=== PATIENT | female | born 1930 | race Caucasian/White ===

== ENCOUNTER → 2018-08-23 | Day surgery (SDC) | payer MEDICARE ==
[2018-08-21 17:20] LABS: BASOPHILS % 0.4 % (0.0-1.0); EOSINOPHILS # (AUTO) 0.1 (0.0-0.4); EOSINOPHILS % 1.3 % (0.0-6.0); HEMATOCRIT 39.3 % (34.2-44.1); HEMOGLOBIN 13.1 g/dL (12.0-16.0); LYMPHOCYTES # (AUTO) 1.7 (1.0-3.2); LYMPHOCYTES % 30.1 % (18.0-39.1); MEAN CORPUSCULAR HEMOGLOBIN 31.2 pg (28-32); MEAN CORPUSCULAR HGB CONC 33.3 g/dL (31-35); MEAN CORPUSCULAR VOLUME 93.6 fL (81-99); MONOCYTES # (AUTO) 0.6 (0.2-0.8); MONOCYTES % 10.4 % (4.4-11.3); NEUTROPHILS # (AUTO) 3.2 (2.1-6.9); NEUTROPHILS % 57.6 % (38.7-80.0); PLATELET COUNT 129 x10e3/uL (140-360); RED CELL DISTRIBUTION WIDTH 14.4 % (11.7-14.4)
[~2018-08-23] MED LIST: BIOTIN2500 MCG PO; LEVOTHYROXINE112 MCG PO; METHOTREXATE2.5 MG PO; METOPROLOL SUCC25 MG PO; MULTI-VITAMIN1 EACH PO; OMEPRAZOLE40 MG PO; PROPOFOL IV EMULSION 10 MG/ML 50 ML VIAL ONE; RESTASIS1 EACH OP
--- OUTSIDE RECORDS SUMMARY | 2018-08-23 07:54 | XMS REPORT ---
Author Author [facility] Address Unknown Phone Unavailable Care Team Providers Care Clinical Coder Name Role Phone Unavailable Unavailable Payers Payer Name Policy Type Policy Number Effective Date Expiration Date Problems This patient has no known problems. Allergies, Adverse Reactions, Alerts Allergy Name Allergy Type Status Severity Reaction(s) Onset Date Inactive Date Treating Clinician Comments Sulfa (Sulfonamide Antibiotics) DA Active U 2016-04-18 00:00:00 doxycycline DA Active [place] 2016-04-18 00:00:00 Medications This patient has no known medications.
--- OUTSIDE RECORDS SUMMARY | 2018-08-23 07:54 | XMS REPORT | Continuity of Care Document ---
Author Author [facility] Interface Address Unknown Phone Unavailable Problems Problem Status Onset Date Classification Date Reported Comments Source WEAKNESS Active 11/21/2012 [facility] COPD - Chronic obstructive pulmonary disease Resolved Problem 11/23/2012 [facility] Heart murmur Resolved Problem 11/23/2012 [facility] Medications Medication Details Route Status Patient Instructions Ordering Provider Order Date Source Allergies, Adverse Reactions, Alerts Substance Category Reaction Severity Reaction type Status Date Reported Comments Source Immunizations Immunization Date Given Site Status Last Updated Comments Source Results Order Name Results Value Reference Range Date Interpretation Comments Source CHEMISTRY Phosphorus 3.5 mg/dL 2.5 - 4.5 11/21/2012 Normal [facility] CHEMISTRY Magnesium Lvl 2.1 mg/dL 1.8 - 2.4 11/21/2012 Normal [facility] CHEMISTRY eGFR 68 mL/min/1.73m2 11/21/2012 NA 1Result Comment: The eGFR is calculated using the CKD-EPI formula. In most young, healthy individuals the eGFR will be >90 mL/min/1.73m2. The eGFR declines with age. An eGFR of 60-89 may be normal in some populations, particularly the elderly, for whom the CKD-EPI formula has not been extensively validated. Use of the eGFR is not recommended in the following populations: Individuals with unstable creatinine concentrations, including patients and those with serious co-morbid conditions. Patients with extremes in muscle mass or diet. The data above are obtained from the National Kidney Disease Education Program (NKDEP) which additionally recommends that when the eGFR is used in patients with extremes of body mass index for purposes of drug dosing, the eGFR should be multiplied by the estimated BMI. [facility] CHEMISTRY BUN 21 mg/dL 7 - 22 11/21/2012 Normal [facility] CHEMISTRY Creatinine Lvl 0.8 mg/dL 0.5 - 1.4 11/21/2012 Normal [facility] CHEMISTRY Glucose Lvl 93 mg/dL 70 - 99 11/21/2012 Normal 2Interpretive Data: Adult reference range values reflect the clinical guidelines of the [place] [employer]. [facility] CHEMISTRY Calcium Lvl 9.0 mg/dL 8.5 - 10.5 11/21/2012 Normal [facility] CHEMISTRY CO2 31 meq/L 24 - 32 11/21/2012 Normal [facility] CHEMISTRY Chloride Lvl 103 meq/L 95 - 109 11/21/2012 Normal [facility] CHEMISTRY Potassium Lvl 4.3 meq/L 3.5 - 5.1 11/21/2012 Normal [facility] CHEMISTRY Sodium Lvl 142 meq/L 135 - 145 11/21/2012 Normal [facility] CHEMISTRY Albumin Lvl 3.8 g/dL 3.5 - 5.0 11/21/2012 Normal [facility] CHEMISTRY Total Protein 7.1 g/dL 6.4 - 8.4 11/21/2012 Normal [facility] CHEMISTRY AST 33 unit/L 0 - 37 11/21/2012 Normal [facility] CHEMISTRY Bili Total 0.2 mg/dL 0.2 - 1.3 11/21/2012 Normal [facility] CHEMISTRY Alk Phos 102 unit/L 39 - 136 11/21/2012 Normal [facility] CHEMISTRY ALT 28 unit/L 0 - 65 11/21/2012 Normal [facility] CHEMISTRY B/C Ratio 26 6 - 25 11/21/2012 HI [facility] CHEMISTRY AGAP 12.3 meq/L 10.0 - 20.0 11/21/2012 Normal [facility] CHEMISTRY Globulin 3.3 g/dL 2.0 - 4.0 11/21/2012 Normal [facility] CHEMISTRY A/G Ratio 1.2 0.7 - 1.6 11/21/2012 Normal [facility] HEMATOLOGY MPV 9.0 fL 7.4 - 10.4 11/21/2012 Normal [facility] HEMATOLOGY Platelet 183 K/CMM 133 - 450 11/21/2012 Normal [facility] HEMATOLOGY MCV 88.2 fL 81.0 - 99.0 11/21/2012 Normal [facility] HEMATOLOGY MCHC 33.5 g/dL 32.0 - 36.0 11/21/2012 Normal [facility] HEMATOLOGY MCH 29.5 pg 27.0 - 31.0 11/21/2012 Normal [facility] HEMATOLOGY RDW 12.4 % 11.5 - 14.5 11/21/2012 Normal [facility] HEMATOLOGY Hct 41.4 % 36.0 - 48.0 11/21/2012 Normal [facility] HEMATOLOGY Hgb 13.8 g/dL 12.0 - 16.0 11/21/2012 Normal [facility] HEMATOLOGY RBC 4.69 M/CMM 4.20 - 5.40 11/21/2012 Normal [facility] HEMATOLOGY WBC 6.3 K/CMM 3.7 - 10.4 11/21/2012 Normal [facility] HEMATOLOGY Eosinophils # 0.1 K/CMM 0.0 - 0.5 11/21/2012 Normal [facility] HEMATOLOGY Lymphocytes # 1.3 K/CMM 1.0 - 5.5 11/21/2012 Normal [facility] HEMATOLOGY Monocytes # 0.5 K/CMM 0.0 - 0.8 11/21/2012 [facility] HEMATOLOGY Basophils 0.7 % 0.0 - 1.0 11/21/2012 Normal [facility] HEMATOLOGY Segs-Bands # 4.4 K/CMM 1.5 - 8.1 11/21/2012 Normal [facility] HEMATOLOGY Eosinophils 1.1 % 0.0 - 4.0 11/21/2012 Normal [facility] HEMATOLOGY Monocytes 7.4 % 2.0 - 12.0 11/21/2012 Normal [facility] HEMATOLOGY Lymphocytes 21.4 % 20.0 - 40.0 11/21/2012 [facility] HEMATOLOGY Segs 69.4 % 45.0 - 75.0 11/21/2012 Normal [facility] HEMATOLOGY Basophils # 0.0 K/CMM 0.0 - 0.2 11/21/2012 Normal [facility] CHEMISTRY T4 Free 1.01 ng/dL 0.76 - 1.46 11/21/2012 Normal [facility] CHEMISTRY TSH 27.900 uIU/mL 0.360 - 3.740 11/21/2012 HI [facility] Vital Signs Vital Sign Value Date Comments Source Weight 55 11/21/2012 [facility] Height 167.64 cm 11/21/2012 [facility] Encounters Location Location Details Encounter Type Encounter Number Reason For Visit Attending Provider ADM Date DC Date Status Source [facility] Emergency [id number] CYNTHIA PIZARRO 11/21/2012 11/21/2012 Active [facility] Procedures Procedure Code Date Perfomer Comments Source
--- OUTSIDE RECORDS SUMMARY | 2018-08-23 07:54 | XMS REPORT | CCD ---
Author Author Auto Generated Organization [facility] Address Unknown Phone Unavailable Care Team Providers Care Fairing Man Name Role Phone Karl Goodson CP Allergies, Adverse Reactions, Alerts Substance Reaction Status NKDA Active Problem List Condition Effective Dates Status COPD - Chronic obstructive pulmonary disease Resolved Heart murmur Resolved Vital Signs Most recent to oldest [Reference Range]: 1 Height 167.64 cm (11/21/2012 07:53:00) Weight 55 kg (11/21/2012 07:53:00) Results CHEMISTRY Most recent to oldest [Reference Range]: 1 Sodium Lvl [135-145 mEq/L] 142 mEq/L (11/21/2012 09:10:00) Potassium Lvl [3.5-5.1 mEq/L] 4.3 mEq/L (11/21/2012 09:10:00) Chloride Lvl [95-109 mEq/L] 103 mEq/L (11/21/2012 09:10:00) CO2 [24-32 mEq/L] 31 mEq/L (11/21/2012 09:10:00) AGAP [10.0-20.0 mEq/L] 12.3 mEq/L (11/21/2012 09:10:00) Creatinine Lvl [0.5-1.4 mg/dL] 0.8 mg/dL (11/21/2012 09:10:00) eGFR 68 mL/min/1.73m2 1 *NA* (11/21/2012 09:10:00) BUN [7-22 mg/dL] 21 mg/dL (11/21/2012 09:10:00) B/C Ratio [6-25] 26 *HI* (11/21/2012 09:10:00) Glucose Lvl [70-99 mg/dL] 93 mg/dL 2 (11/21/2012 09:10:00) Total Protein [6.4-8.4 g/dL] 7.1 g/dL (11/21/2012:10:00) Albumin Lvl [3.5-5.0 g/dL] 3.8 g/dL (11/21/2012:10:00) Globulin [2.0-4.0 g/dL] 3.3 g/dL (11/21/2012:10:) A/G Ratio [0.7-1.6] 1.2 (11/21/2012::00) Calcium Lvl [8.5-10.5 mg/dL] 9.0 mg/dL (11/21/2012::) Phosphorus [2.5-4.5 mg/dL] 3.5 mg/dL (11/21/2012) Magnesium Lvl [1.8-2.4 mg/dL] 2.1 mg/dL (11/21/2012::) ALT [0-65 unit/L] 28 unit/L (11/21/2012:00) AST [0-37 unit/L] 33 unit/L (11/21/2012::00) Alk Phos [39-136 unit/L] 102 unit/L (11/21/2012::00) Bili Total [0.2-1.3 mg/dL] 0.2 mg/dL (11/21/2012:10:00) T4 Free [0.76-1.46 ng/dL] 1.01 ng/dL (11/21/2012 08:50:00) TSH [0.360-3.740 uIU/mL] 27.900 uIU/mL *HI* (11/21/2012 08:50:00) 1Result Comment: The eGFR is calculated using [...] from the National Kidney Disease Education Program ( NKDEP) which additionally recommends that when the eGFR is used in patients with extremes of body mass index for purposes of drug dosing, the eGFR should be mul tiplied by the estimated BMI. 2Interpretive Data: Adult reference range values reflect the clinical guidelines of the [place] [employer]. HEMATOLOGY Most recent to oldest [Reference Range]: 1 WBC [3.7-10.4 K/CMM] 6.3 K/CMM (11/21/2012) RBC [4.20-5.40 M/CMM] 4.69 M/CMM (11/21/2012) Hgb [12.0-16.0 g/dL] 13.8 g/dL (11/21/2012) Hct [36.0-48.0 %] 41.4 % (11/21/2012) MCV [81.0-99.0 fL] 88.2 fL (11/21/2012) MCH [27.0-31.0 pg] 29.5 pg (11/21/2012) MCHC [32.0-36.0 g/dL] 33.5 g/dL (11/21/2012) RDW [11.5-14.5 %] 12.4 % (11/21/2012) Platelet [133-450 K/CMM] 183 K/CMM (11/21/2012) MPV [7.4-10.4 fL] 9.0 fL (11/21/2012:) Segs [45.0-75.0 %] 69.4 % (11/21/2012) Lymphocytes [20.0-40.0 %] 21.4 % (11/21/2012) Monocytes [2.0-12.0 %] 7.4 % (11/21/2012:) Eosinophils [0.0-4.0 %] 1.1 % (11/21/2012 09:10:00) Basophils [0.0-1.0 %] 0.7 % (11/21/2012 09:10:00) Segs-Bands # [1.5-8.1 K/CMM] 4.4 K/CMM (11/21/2012 09:10:00) Lymphocytes # [1.0-5.5 K/CMM] 1.3 K/CMM (11/21/2012 09:10:00) Monocytes # [0.0-0.8 K/CMM] 0.5 K/CMM (11/21/2012 09:10:00) Eosinophils # [0.0-0.5 K/CMM] 0.1 K/CMM (11/21/2012 09:10:00) Basophils # [0.0-0.2 K/CMM] 0.0 K/CMM (11/21/2012 09:10:00)
[2018-08-23 10:40] VITALS: BP 130/59
--- NOTE | 2018-08-23 10:45 | Operative Report ---
DATE OF PROCEDURE: August 23, 2018 REFERRING PHYSICIAN: Dr. Xochilt Myers. PROCEDURE PERFORMED: Esophagogastroduodenoscopy with esophageal dilatation and biopsies. INDICATIONS FOR ESOPHAGOGASTRODUODENOSCOPY: Dysphagia, acid reflux. MEDICATION: Patient was done under MAC. Please see anesthesiologist's note. PROCEDURE: With the patient in the left lateral decubitus position, the flexible fiberoptic Olympus gastroscope was introduced into the esophagus under direct visualization without any difficulty. There was some patchy erythema noted in distal esophagus. There was a mild stricture noted at the GE junction that was dilated to size 50-[place] Olivier. The scope was then advanced with ease into the stomach. The mucosa overlying the antrum and the body revealed some diffuse erythema and low-grade to moderate edema and biopsies were obtained and sent to stain for H. pylori. Pylorus appeared to be of normal contour and shape, was intubated with ease, and the scope was advanced all the way to the 2nd portion of the duodenum. The scope was then withdrawn slowly. Mucosa overlying the proximal 2nd portion and the duodenal bulb appeared to be within normal limits. The scope was then withdrawn back into the stomach and retroflexed. Mucosa overlying the fundus and the cardia appeared to be within normal limits. The scope was then straightened out. The stomach was decompressed. The scope was subsequently withdrawn. Patient tolerated the procedure well. IMPRESSIONS 1. Distal esophagitis. 2. Esophageal stricture, dilated to a size 50-[place] Olivier. 3. Gastritis biopsied, biopsies sent to stain for Helicobacter pylori. PLAN: Follow up histology. Initiate Protonix 40 mg 1 p.o. q.a.m. a.c. Job#: [id number] TA cc:XOCHILT MYERS MD,
== END | disposition home or self-care (01) ==
LOC: OR 07:51
PROVIDERS: ATTEND Internal Medicine Gastroenterology
DX: K22.2 Esophageal obstruction (principal); K29.50 Unspecified chronic gastritis without bleeding; K20.8 Other esophagitis; K29.60 Other gastritis without bleeding; K31.89 Other diseases of stomach and duodenum; K21.9 Gastro-esophageal reflux disease without esophagitis; R63.6 Underweight; I10 Essential (primary) hypertension; E03.9 Hypothyroidism, unspecified; M06.9 Rheumatoid arthritis, unspecified; M19.90 Unspecified osteoarthritis, unspecified site; Z01.812 Encounter for preprocedural laboratory examination; Z68.1 Body mass index [BMI] 19.9 or less, adult; Z90.49 Acquired absence of other specified parts of digestive tract; Z80.0 Family history of malignant neoplasm of digestive organs
CPT/HCPCS: 36415; 43239; 43450; 85025; 88305; 88312; J2704